=== PATIENT | female | born 1995 | race Caucasian/White ===

== ENCOUNTER → 2021-11-14 | Outpatient (CLI) | payer OTHER, BC ==
[2021-11-14 16:21] LABS: BASOPHILS % (AUTO) 0 % (0-10); EOSINOPHILS % (AUTO) 0 % (0-10); HEMATOCRIT 38 % (35-52); HEMOGLOBIN 12.6 g/dL (11.5-16.0); LYMPHOCYTES # (AUTO) 1.3 10^3/uL (1.0-4.0); LYMPHOCYTES % (AUTO) 14 % (12-44); MEAN CORPUSCULAR HEMOGLOBIN 29 pg (25-34); MEAN CORPUSCULAR HGB CONC 33 g/dL (32-36); MEAN CORPUSCULAR VOLUME 90 fL (80-99); MEAN PLATELET VOLUME 11.1 fL (9.0-12.2); MONOCYTES # (AUTO) 0.6 10^3/uL (0.0-1.0); MONOCYTES % (AUTO) 6 % (0-12); NEUTROPHILS # (AUTO) 7.4 10^3/uL (1.8-7.8); NEUTROPHILS % (AUTO) 79 % (42-75); PLATELET COUNT 183 10^3/uL (130-400); WHITE BLOOD COUNT 9.4 10^3/uL (4.3-11.0)
[2021-11-14 16:53] LABS: ALBUMIN 3.5 GM/DL (3.2-4.5); BILIRUBIN,TOTAL 0.4 MG/DL (0.1-1.0); CALCIUM 9.2 MG/DL (8.5-10.1); CREATININE SERUM 0.6 MG/DL (0.60-1.30); POTASSIUM 3.8 MMOL/L (3.6-5.0); TOTAL PROTEIN 6.4 GM/DL (6.4-8.2); URIC ACID 4.6 MG/DL (2.6-7.2)
== END ==
LOC: LAB 16:04
PROVIDERS: ATTEND Family Medicine
DX: O13.3 Gestational [pregnancy-induced] hypertension without significant proteinuria, third trimester (principal); Z3A.00 Weeks of gestation of pregnancy not specified
CPT/HCPCS: 36415; 80053; 82570; 84156; 84550; 85025

== ENCOUNTER → 2021-11-15 | Outpatient (CLI) | payer OTHER, BC ==
--- NOTE | 2021-11-15 15:44 | Diagnostic Imaging Report ---
INDICATION: Evaluate growth. TECHNIQUE: Multiple real-time grayscale images were obtained over the gravid uterus. COMPARISON: None FINDINGS: There is a single live fetus in cephalic presentation. heart rate was recorded 136 bpm. Placenta is posterior and fundal. Amniotic fluid index is 8.0 cm. Cervical length is 4.4 cm. Biophysical profile score is normal 8 out of 8. Biometrical measurements are as follows: Biparietal 9.06 cm, age 36 weeks 6 days. Head circumference 33.40 cm, age 38 weeks 2 days. Abdominal circumference 33.30 cm, age 37 weeks 2 days. Femur length 6.96 cm, age 35 weeks 5 days. Sonographic estimate age: 37 weeks 1 days. Sonographic estimated date of delivery: 12/05/2021. Estimated Weight: 3060 gm (+/- 447 gm). LMP percentile: 25%. heart rate: 136 beats per minute. number: 1 of 1. IMPRESSION: 1. Single live IUP 37 weeks 1 day gestational age. Estimated date of confinement sonographically is 12/05/2021. 2. Normal biophysical profile of 8 out of 8. Dictated by: Dictated on workstation # [id number]
== END ==
LOC: RAD 10:21
PROVIDERS: ATTEND Family Medicine
DX: O13.3 Gestational [pregnancy-induced] hypertension without significant proteinuria, third trimester (principal); Z3A.37 37 weeks gestation of pregnancy
CPT/HCPCS: 76805; 76819

== ENCOUNTER 2021-11-21 19:00 | Inpatient (IN) | payer OTHER, BC, MEDICAID ==
[~2021-11-21] VITALS: Ht 48.3 cm; Wt 86.5 kg
[2021-11-21 20:00] VITALS: BP 132/75
[2021-11-21] MEDS ORDERED: OXYTOCIN PRE-MIX DRIP 500 ML IV SCH (20:00)
[2021-11-21] MEDS ORDERED: MINERAL OIL 30 ML TOP PRN (20:00)
[2021-11-21] MEDS: LACTATED RINGERS 1,000 ML IV SCH (20:02)
[2021-11-21 20:07] LABS: BASOPHILS % (AUTO) 0 % (0-10); EOSINOPHILS % (AUTO) 0 % (0-10); HEMATOCRIT 37 % (35-52); HEMOGLOBIN 12.4 g/dL (11.5-16.0); LYMPHOCYTES # (AUTO) 1.5 10^3/uL (1.0-4.0); LYMPHOCYTES % (AUTO) 14 % (12-44); MEAN CORPUSCULAR HEMOGLOBIN 29 pg (25-34); MEAN CORPUSCULAR HGB CONC 33 g/dL (32-36); MEAN CORPUSCULAR VOLUME 88 fL (80-99); MEAN PLATELET VOLUME 12.1 fL (9.0-12.2); MONOCYTES # (AUTO) 0.8 10^3/uL (0.0-1.0); MONOCYTES % (AUTO) 7 % (0-12); NEUTROPHILS # (AUTO) 8.1 10^3/uL (1.8-7.8); NEUTROPHILS % (AUTO) 77 % (42-75); PLATELET COUNT 221 10^3/uL (130-400); WHITE BLOOD COUNT 10.5 10^3/uL (4.3-11.0)
[2021-11-21 20:21] LABS: ALBUMIN 3.7 GM/DL (3.2-4.5); POTASSIUM 3.8 MMOL/L (3.6-5.0)
[2021-11-21 20:22] LABS: CALCIUM 9.1 MG/DL (8.5-10.1)
[2021-11-21 20:23] LABS: TOTAL PROTEIN 6.6 GM/DL (6.4-8.2)
[2021-11-21 20:25] LABS: BILIRUBIN,TOTAL 0.4 MG/DL (0.1-1.0)
[2021-11-21 20:27] LABS: CREATININE SERUM 0.63 MG/DL (0.60-1.30)
[2021-11-21 20:30] LABS: URIC ACID 5.8 MG/DL (2.6-7.2)
[2021-11-21] MEDS ORDERED: D5 LR IV SOLUTION 1,000 ML IV ONE (20:37)
[2021-11-21] MEDS: D5 LR IV SOLUTION 1,000 ML IV SCH (20:42)
[2021-11-21 21:00] VITALS: BP 121/68
[2021-11-21 22:00] VITALS: BP 134/74
[2021-11-21] MEDS ORDERED: CATHETER FLUSH 10 ML SYR IV SCH (22:00)
[2021-11-21 23:00] VITALS: BP 124/76
[2021-11-22] VITALS (61 sets, daily range): BP systolic 96–172; BP diastolic 49–90
[2021-11-22] MEDS ORDERED: fentaNYL INJ 100 MCG/2 ML AMP ONE ×3 (00:47→12:41)
[2021-11-22] MEDS: fentaNYL INJ 100 MCG/2 ML AMP IVP PRN ×2 (00:51→12:08)
[2021-11-22] MEDS ORDERED: fentaNYL 2 mcg/ml BUPIVA 0.125 100 ML ONE (02:18)
[2021-11-22] MEDS ORDERED: BUPIVACAINE 0.25% 30 ML (SENSORCAINE) VIAL ONE (03:13)
[2021-11-22] MEDS ORDERED: ONDANSETRON 4 MG/2 ML (SDV) Z0FRAN ONE ×2 (03:16→12:41)
[2021-11-22] MEDS: D5 LR IV SOLUTION 1,000 ML IV SCH (03:59)
[2021-11-22] MEDS ORDERED: EPIDURAL (fentaNYL 2 MCG/ML BUPIVA 0.125%)100 ML BAG EPI PRN (04:00)
[2021-11-22] MEDS ORDERED: NALOXONE 0.4 MG/ML 1 ML (NARCAN) VIAL IV PRN (04:00)
[2021-11-22] MEDS ORDERED: ONDANSETRON 4 MG/2 ML (SDV) Z0FRAN IV PRN (04:00)
[2021-11-22] MEDS ORDERED: fentaNYL INJ 100 MCG/2 ML AMP INJ ONE (04:00)
[2021-11-22] MEDS ORDERED: LACTATED RINGERS 1,000 ML IV ONE ×2 (04:00)
--- NOTE | 2021-11-22 07:51 | History & Physical-OB ---
OB - Chief Complaint & HPI Date/Time Date of Admission: Date of Admission: Nov 21, 2021 at 19:18 Date seen by a Provider: Nov 22, 2021 Time Seen by a Provider: 07:50 Chief Complaint/History OB-Reason for Admission/Chief: Obstetrical Complication Hx : 2 Hx Para: 0 Expected Date of Delivery: Nov 25, 2021 Gestational Age in Weeks: 39 Gestational Age in Days: 3 Indication for induction: medical complication History of Labs A+, antibody neg, rubella equivalent, GBS neg. Other GHTN with mild elevations of BP around 140/92 at 3 separate visits, negative preeclampsia labs outpatient last week and on admission. Allergies and Home Medications Allergies Coded Allergies: No Known Drug Allergies (Unverified , 11/14/21) Patient Home Medication List Home Medication List Reviewed: Yes Citalopram Hydrobromide (Citalopram HBr) 10 Mg Tablet, 10 MG PO DAILY, (Report ed) Entered as Reported by: KISHA KEENAN on 11/22/21802 Last Action: Reviewed Glycopyrrolate (Glycopyrrolate) 2 Mg Tablet, 1 TAB PO TID, (Reported) Entered as Reported by: KISHA KEENAN on 11/22/21802 Last Action: Reviewed Omeprazole (Omeprazole) 40 Mg Capsule.dr, 40 MG PO DAILY, (Reported) Entered as Reported by: KISHA KEENAN on 11/22/21802 Last Action: Reviewed No.137/Iron/Folic Acd ( Vitamin Tablet) 27 Mg-0.8 Mg Tablet, 1 EACH PO, (Reported) Entered as Reported by: KISHA KEENAN on 11/22/21803 Last Action: Reviewed OB - History Hx of Present Care: Yes Ultrasounds: Normal mid trimester US Obstetrical Complications: Gestational Hypertension Information Induced Hypertension: Yes Maternal Gestational Diabetes: No Hemorrhage: No Obstetrical History Hx : 2 Hx Para: 0 Hx # Term Pregnancies: 0 Hx # Pregnancies: 0 Number of Living Children: 0 Hx Termination: No Hx Total # of Abortions (Spona: 1 Hx Multiple Gestation: No Hx Ectopic : No Hx Stillbirth: No Hx Complication: No Hx Induced Hypertens: Yes Hx Maternal Gestational Diabet: No Hx Hemorrhage: No Patient Past Medical History PMHx: Hyperhydrosis Depression Surghx: Tonsillectomy Cholecystectomy Social History/Family History Alcohol Use: Denies Use Recreational Drug Use: No Smoking Cessation: Never smoker Immunizations Influenza Vaccine Up-to-Date: No; Not Current First/Initial COVID19 Vaccine: 07/21/2020 Second COVID19 Vaccination: 08/21/2020 Tetanus Booster (TDap): Less than 5yrs (09/13/2021) RPR/VDRL: Negative GBS Status: Negative HBsAG: Negative OB - Admission Exam Physical Exam Vitals: Vital Signs 11/22/21 11/22/21 05:55 06:53 Temp 36.6 Pulse 110 Resp 18 B/P (MAP) 126/64 (84) Pulse Ox 97 O2 Delivery Room Air HEENT: NCAT Abdomen: Non tender Extremities: Normal Cervical Dilatation: 6cm Effacement: Other (80) Station: -2 Membranes: Ruptured (at time of exam) Amniotic Fluid: Clear Heart Rate: 130's Accelerations: Accelerations Present Decelerations: No Decelerations Short Term Variability: Present Cotton Ginner Helper Variability: Average (6-25) Contractions on Admission: None Farr Scoring Tool (Modified) Dilation (cm): 1-2cm (1) Effacement (%): 0-30% (0) Descent/Station: -3 (0) Cervix Consistency: Soft (2) Cervix Position: Anterior (2) Subtract 1 point for: Nulliparity (-1) Farr Score: 4 Labs Laboratory Tests Test 11/21/21 19:43 Range/Units White Blood Count 10.5 4.3-11.0 10^3/uL Red Blood Count 4.23 3.80-5.11 10^6/uL Hemoglobin 12.4 11.5-16.0 g/dL Hematocrit 37 35-52 % Mean Corpuscular Volume 88 80-99 fL Mean Corpuscular Hemoglobin 29 25-34 pg Mean Corpuscular Hemoglobin Concent 33 32-36 g/dL Red Cell Distribution Width 13.6 10.0-14.5 % Platelet Count 221 130-400 10^3/uL Mean Platelet Volume 12.1 9.0-12.2 fL Immature Granulocyte % (Auto) 1 % Neutrophils (%) (Auto) 77 H 42-75 % Lymphocytes (%) (Auto) 14 12-44 % Monocytes (%) (Auto) 7 0-12 % Eosinophils (%) (Auto) 0 0-10 % Basophils (%) (Auto) 0 0-10 % Neutrophils # (Auto) 8.1 H 1.8-7.8 10^3/uL Lymphocytes # (Auto) 1.5 1.0-4.0 10^3/uL Monocytes # (Auto) 0.8 0.0-1.0 10^3/uL Eosinophils # (Auto) 0.0 0.0-0.3 10^3/uL Basophils # (Auto) 0.0 0.0-0.1 10^3/uL Immature Granulocyte # (Auto) 0.1 0.0-0.1 10^3/uL Urine Protein 19 H 6-12 MG/DL Urine Creatinine 326 H 30-125 MG/DL Urine Protein/Creatinine Ratio 0.06 Sodium Level 137 135-145 MMOL/L Potassium Level 3.8 3.6-5.0 MMOL/L Chloride Level 107 98-107 MMOL/L Carbon Dioxide Level 17 L 21-32 MMOL/L Anion Gap 13 5-14 MMOL/L Blood Urea Nitrogen 9 7-18 MG/DL Creatinine 0.63 0.60-1.30 MG/DL Estimat Glomerular Filtration Rate 127 BUN/Creatinine Ratio 14 Glucose Level 81 70-105 MG/DL Uric Acid 5.8 2.6-7.2 MG/DL Calcium Level 9.1 8.5-10.1 MG/DL Corrected Calcium 9.3 8.5-10.1 MG/DL Total Bilirubin 0.4 0.1-1.0 MG/DL Aspartate Amino Transf (AST/SGOT) 23 5-34 U/L Alanine Aminotransferase (ALT/SGPT) 15 0-55 U/L Alkaline Phosphatase 226 H 40-136 U/L Lactate Dehydrogenase 257 H 125-220 U/L Total Protein 6.6 6.4-8.2 GM/DL Albumin 3.7 3.2-4.5 GM/DL OB - Assessment/Plan/Diagnosis Assessment Admission Dx Gestational hypertension 39 weeks gestation Induction of labor GBS negative Rubella equivocal Admission Status: Inpatient Order (span 2 midnights) Reason for Inpatient Admission: Induction, labor and delivery and course Plan Plan: Induction Induction Method: per Misoprostol Protocol Problems: (1) Gestational hypertension Assessment & Plan: Induction of labor planned with misoprostol, preeclampsia labs negative on admission. Qualifiers: Qualified Codes: O13.3 - Gestational [-induced] hypertension without significant proteinuria, third trimester KISHA KEENAN MD Nov 22, 2021 07:51
[2021-11-22] MEDS ORDERED: OMEP40CA6 PO (08:03)
[2021-11-22] MEDS ORDERED: CITA10TA9 PO (08:03)
[2021-11-22] MEDS ORDERED: GLYC2TAB3 PO (08:03)
[2021-11-22] MEDS ORDERED: PREN-164 PO (08:04)
--- NOTE | 2021-11-22 08:56 | Anesthesia-Regional Post-Op ---
Regional Patient Condition Mental Status: Alert, Oriented x3 Circulation: Same as Pre-Op Headache: Absent Sensation: Full Recovery Motor Block: Absent Post Op Complications Complications None Follow Up Care/Instructions Patient Instructions None needed. Anesthesia/Patient Condition Patient is doing well, no complaints, stable vital signs, no apparent adverse anesthesia problems. No complications reported per nursing. JONATHAN BYRD CRNA Nov 22, 2021 08:56
[2021-11-22] MEDS ORDERED: LIDOCAINE 1% INJ 20 ML VIAL ONE (10:31)
[2021-11-22] MEDS: LACTATED RINGERS 1,000 ML IV SCH ×2 (12:25→13:18)
[2021-11-22] MEDS ORDERED: MIDAZOLAM 2 MG/2 ML (VERSED) VIAL ONE (12:41)
[2021-11-22] MEDS ORDERED: LIDOCAINE PF 2% 5 ML (XYLOCAINE) VIAL ONE (12:41)
[2021-11-22] MEDS ORDERED: SUCCINYLCHOLINE INJ 100 MG/5 ML SYR/VIAL ONE (12:41)
[2021-11-22] MEDS ORDERED: ROCURONIUM 50 MG/5 ML (ZEMURON) VIAL IV ONE (12:41)
[2021-11-22] MEDS ORDERED: GLYCOPYRROLATE 0.2 MG/ML (ROBINUL) 2 ML VIAL ONE (12:41)
[2021-11-22] MEDS ORDERED: proPOfol 200 MG/20 ML (DIPRIVAN) VIAL IV ONE (12:41)
[2021-11-22] MEDS ORDERED: PIPERACILLIN/TAZO 4.5 GM VIAL (ZOSYN) IV ONE (12:50)
[2021-11-22] MEDS ORDERED: PIPERACILLIN SODIUM/TAZOBACTAM 4.5 GM in NS (IVPB) 100 ML IV NR ×2 (13:00→21:00)
[2021-11-22] MEDS ORDERED: LACTATED RINGERS 1,000 ML IV PRN (13:00)
[2021-11-22] MEDS ORDERED: CARBOPROST (HEMABATE) 250 MCG/ML AMP IM ONE (13:06)
[2021-11-22] MEDS ORDERED: METHYLERGONOVINE 0.2 MG/ML (METHERGINE) AMP ONE (13:06)
[2021-11-22] MEDS ORDERED: NS (IVPB) 100 ML ONE (13:07)
[2021-11-22] MEDS ORDERED: PHENYLEPHRINE 100 MCG/ML 10 ML (ANESTHESIA) SYR ONE (13:19)
[2021-11-22] MEDS ORDERED: OXYTOCIN PRE-MIX DRIP 500 ML IV ONE (13:23)
--- NOTE | 2021-11-22 14:06 | OB Labor & Delivery Record ---
Vag Delivery Note Vag Delivery Note Date of Delivery: 11/22/21 Preoperative Diagnosis: Simba Knight is a (25 /Para 2 / 0,Gestational Age (wks)39with 4 days Postoperative Diagnosis: Same Surgeon: KISHA KEENAN Cigarette Roller: Wendy Villegas MS2 Anesthesia: Epidural Delivery Type: Spontaneous vaginal delivery Findings: Viable male infant, apgars 7/9, weight 6#11 Lacerations: right labial, second degree perineal, cervical laceration (noted in OR after placenta) Nuchal cord x1 loose, delivered through, No body cord or shoulder dystocia Estimated Blood Loss: 150 ml Complications: None Condition: Stable Description of Procedure: The patient is a 25 year old female who presented for induction of labor for mild GHTN. She was admitted and informed consent was obtained. Her labor course was unremarkable. She progressed to complete dilatation and began to push. She was then set up for delivery. The 's head was delivered atraumatically in the YVONNE position. The shoulders and remainder of the infant's body were then delivered without difficulty. Upon delivery, the infant was placed on maternal bdomen. The cord was doubly clamped and cut and the was handed off to the pediatric staff. After 30 minutes with active management of third stage, placenta had not delivered, so epidural was restarted and an attempt at manual placental extraction which was unsuccessful. After 50 mcg of IV fentanyl was given a second attempt was made at manual extraction and I was able to separate part of the placenta, but it remained tightly adhered at maternal left. She had minimal to no bleeding throughout this time. At about 55 minutes after delivery, consulted with Flat Lock Machine Operator who took patient to OR for further placental management, please see OR notes. Vitals - Labs Vital Signs - I&O Vital Signs Date Time Temp Pulse Resp B/P (MAP) Pulse Ox O2 Delivery O2 Flow Rate FiO2 11/22/21 06:53 36.6 110 18 126/64 (84) 11/22/21 06:38 111 18 123/61 (81) 11/22/21 06:24 109 18 116/59 (78) 11/22/21 06:08 111 18 113/57 (75) 11/22/21 05:55 108 18 122/68 (86) 97 Room Air 11/22/21 05:40 115 18 114/61 (78) 95 Room Air 11/22/21 05:25 112 18 113/58 (76) 96 Room Air 11/22/21 05:09 100 18 113/55 (74) 96 Room Air 11/22/21 04:54 103 18 116/59 (78) 96 Room Air 11/22/21 04:39 105 18 99/58 (72) 98 Room Air 11/22/21 04:22 118 18 123/70 (87) 98 Room Air 11/22/21 04:03 107 18 120/65 (83) 96 Room Air 11/22/21 04:00 113 18 112/63 (79) 97 Room Air 11/22/21 03:53 104 18 125/75 (92) 96 Room Air 11/22/21 03:50 112 18 126/71 (89) 96 Room Air 11/22/21 03:46 118 18 125/82 (96) 96 Room Air 11/22/21 03:38 116 18 132/84 (100) 98 Room Air 11/22/21 03:34 113 18 136/86 (103) 98 Room Air 11/22/21 03:28 112 18 137/83 (101) 94 Room Air 11/22/21 03:09 100 18 109/58 (75) 11/22/21 02:55 96 18 133/75 (94) 11/22/21 02:40 105 18 135/74 (94) 11/22/21 02:01 103 18 128/81 (97) 11/22/21 01:01 101 18 121/77 (92) 11/22/21 00:00 100 18 135/87 (103) 11/21/21 23:00 96 18 124/76 (92) 11/21/21 22:00 98 18 134/74 (94) 96 Room Air 11/21/21 21:00 111 18 121/68 (85) 97 Room Air 11/21/21 20:00 36.7 122 18 97 Room Air I & O 11/22/21 07:00 Intake Total 2000 ml Balance 2000 ml Labs Laboratory Tests 11/21/21 19:43: White Blood Count 10.5, Red Blood Count 4.23, Hemoglobin 12.4, Hematocrit 37, Mean Corpuscular Volume 88, Mean Corpuscular Hemoglobin 29, Mean Corpuscular Hemoglobin Concent 33, Red Cell Distribution Width 13.6, Platelet Count 221, Mean Platelet Volume 12.1, Immature Granulocyte % (Auto) 1, Neutrophils (%) (Auto) 77H, Lymphocytes (%) (Auto) 14, Monocytes (%) (Auto) 7, Eosinophils (%) (Auto) 0, Basophils (%) (Auto) 0, Neutrophils # (Auto) 8.1H, Lymphocytes # (Auto) 1.5, Monocytes # (Auto) 0.8, Eosinophils # (Auto) 0.0, Basophils # (Auto) 0.0, Immature Granulocyte # (Auto) 0.1, Urine Protein 19H, Urine Creatinine 326H , Urine Protein/Creatinine Ratio 0.06, Sodium Level 137, Potassium Level 3.8, Chloride Level 107, Carbon Dioxide Level 17L, Anion Gap 13, Blood Urea Nitrogen 9, Creatinine 0.63, Estimat Glomerular Filtration Rate 127, BUN/Creatinine Ratio 14, Glucose Level 81, Uric Acid 5.8, Calcium Level 9.1, Corrected Calcium 9.3, Total Bilirubin 0.4, Aspartate Amino Transf (AST/SGOT) 23, Alanine Aminotransferase (ALT/SGPT) 15, Alkaline Phosphatase 226H, Lactate Dehydrogenase 257H, Total Protein 6.6, Albumin 3.7 KISHA KEENAN MD Nov 22, 2021 14:06
[2021-11-22] MEDS ORDERED: morphine INJ 10 MG/ML 1ML (SYR OR VIAL) IVP ONE (14:15)
[2021-11-22] MEDS ORDERED: HYDROmorphone 2 MG/ML VIAL (DILAUDID) IV ONE (14:15)
[2021-11-22] MEDS ORDERED: ONDANSETRON 4 MG/2 ML (SDV) Z0FRAN IVP PRN (14:15)
--- NOTE | 2021-11-22 14:22 | Newborn Infant H&P-Admission ---
Infant Record Exam Date & Time Date seen by provider: Nov 22, 2021 Time seen by provider: 11:[address] Hensley Delivery Assessment Expected Date of Delivery: Nov 25, 2021 Hx : 2 Hx Para: 0 Gestational Age in Weeks: 39 Gestational Age in Days: 4 Delivery Date: Nov 22, 2021 Delivery Time: 11:24 Condition of Infant: Living Delivery Method: Spontaneous Vaginal Operative Indications (Cesarea: N/A-Vaginal Delivery Anesthesia Type: Epidural Events: Induced HTN Intrapartal Events: Other Events (Prolonged 3rd stage of labor, mom to OR for placental evacuation) Gender: Male Viability: Living Mother's Group Strep Mother's Group B Strep: Negative Maternal Labs Rubella: Not Immune (equivocal ) Score Score at 1 Minute: 7 Score at 5 Minutes: 9 Condition/Feeding Benefits of discussed with mother. Feeding Method: Breast Milk-Exclusive Gestation: Single Admission Examination Level of Alertness: Alert Activity/State: Active Alert Suckling: Suckled w Encouragement Anterior [place] Descriptio: WNL Cephalohematoma: No Sclera Description: Clear Mouth, Nose, Eyes: Hard & Soft Palate Intact Neck: Head Mobile Cardiovascular: Regular Rhythm, Femoral Pulses Equal Respiratory: Regular, Unlabored Breath Sounds: Clear, Equal Caput Succedaneum: No Abdomen: Soft Genitalia: Appear Normal Back: Spine Closed, Anus Patent Hips: WNL Movement: Symmetric-Body Muscle Tone: Active Extremities: 5 digits present on each extremity Reflexes: Red, Suck, Grasp-Bilateral Weight/Height Weight: 6.11 Height (Inches): 19 Weight (Calculated Grams): 68513.000 Vital Signs Vital Signs Date Time Temp Pulse Resp B/P (MAP) Pulse Ox O2 Delivery O2 Flow Rate FiO2 11/22/21 14:10 20 103/65 (78) 99 OxyMask 6.00 11/22/21 14:00 20 110/70 (83) 100 OxyMask 6.00 11/22/21 13:56 36.2 20 111/76 (88) 100 OxyMask 6.00 11/22/21 06:53 36.6 110 18 126/64 (84) 11/22/21 06:38 111 18 123/61 (81) 11/22/21 06:24 109 18 116/59 (78) 11/22/21 06:08 111 18 113/57 (75) 11/22/21 05:55 108 18 122/68 (86) 97 Room Air 11/22/21 05:40 115 18 114/61 (78) 95 Room Air 11/22/21 05:25 112 18 113/58 (76) 96 Room Air 11/22/21 05:09 100 18 113/55 (74) 96 Room Air 11/22/21 04:54 103 18 116/59 (78) 96 Room Air 11/22/21 04:39 105 18 99/58 (72) 98 Room Air 11/22/21 04:22 118 18 123/70 (87) 98 Room Air 11/22/21 04:03 107 18 120/65 (83) 96 Room Air 11/22/21 04:00 113 18 112/63 (79) 97 Room Air 11/22/21 03:53 104 18 125/75 (92) 96 Room Air 11/22/21 03:50 112 18 126/71 (89) 96 Room Air 11/22/21 03:46 118 18 125/82 (96) 96 Room Air 11/22/21 03:38 116 18 132/84 (100) 98 Room Air 11/22/21 03:34 113 18 136/86 (103) 98 Room Air 11/22/21 03:28 112 18 137/83 (101) 94 Room Air 11/22/21 03:09 100 18 109/58 (75) 11/22/21 02:55 96 18 133/75 (94) 11/22/21 02:40 105 18 135/74 (94) 11/22/21 02:01 103 18 128/81 (97) 11/22/21 01:01 101 18 121/77 (92) 11/22/21 00:00 100 18 135/87 (103) 11/21/21 23:00 96 18 124/76 (92) 11/21/21 22:00 98 18 134/74 (94) 96 Room Air 11/21/21 21:00 111 18 121/68 (85) 97 Room Air 11/21/21 20:00 36.7 122 18 97 Room Air Laboratory Tests 11/21/21 19:43: White Blood Count 10.5, Red Blood Count 4.23, Hemoglobin 12.4, Hematocrit 37, Mean Corpuscular Volume 88, Mean Corpuscular Hemoglobin 29, Mean Corpuscular Hemoglobin Concent 33, Red Cell Distribution Width 13.6, Platelet Count 221, Mean Platelet Volume 12.1, Immature Granulocyte % (Auto) 1, Neutrophils (%) (Auto) 77H, Lymphocytes (%) (Auto) 14, Monocytes (%) (Auto) 7, Eosinophils (%) (Auto) 0, Basophils (%) (Auto) 0, Neutrophils # (Auto) 8.1H, Lymphocytes # (Auto) 1.5, Monocytes # (Auto) 0.8, Eosinophils # (Auto) 0.0, Basophils # (Auto) 0.0, Immature Granulocyte # (Auto) 0.1, Urine Protein 19H, Urine Creatinine 326H , Urine Protein/Creatinine Ratio 0.06, Sodium Level 137, Potassium Level 3.8, Chloride Level 107, Carbon Dioxide Level 17L, Anion Gap 13, Blood Urea Nitrogen 9, Creatinine 0.63, Estimat Glomerular Filtration Rate 127, BUN/Creatinine Ratio 14, Glucose Level 81, Uric Acid 5.8, Calcium Level 9.1, Corrected Calcium 9.3, Total Bilirubin 0.4, Aspartate Amino Transf (AST/SGOT) 23, Alanine Aminotransferase (ALT/SGPT) 15, Alkaline Phosphatase 226H, Lactate Dehydrogenase 257H, Total Protein 6.6, Albumin 3.7 Impression on Admission Impression on Admission: , Infant, Living, Term Progress/Plan/Problem List (1) Gestational hypertension Qualifiers: Qualified Codes: O13.3 - Gestational [-induced] hypertension without significant proteinuria, third trimester Assessment & Plan: Induction of labor planned with misoprostol, preeclampsia labs negative on admission. BATSHEVA FARIA Nov 22, 2021 14:22
[2021-11-22] MEDS ORDERED: SEVOFLURANE (ULTANE) 15 ML INHAL SOLN ONE (14:54)
[2021-11-22] MEDS ORDERED: BENZOCAINE/MENTHOL (DERMOPLAST) 56 ML CAN TP PRN (15:45)
[2021-11-22] MEDS ORDERED: WITCH HAZEL(TUCKS) 40 EA JAR TOP PRN (15:45)
[2021-11-22] MEDS ORDERED: MEASLES,MUMPS,RUBELLA 1 EA INJ SQ ONE (15:45)
[2021-11-22] MEDS: IBUPROFEN 600 MG (MOTRIN) TAB PO SCH ×2 (16:25→21:33)
[2021-11-22] MEDS: DOCUSATE SODIUM 100 MG (COLACE) CAP PO SCH (21:33)
[2021-11-22] MEDS ORDERED: CATHETER FLUSH 10 ML SYR IV SCH (22:00)
[2021-11-23 01:35] VITALS: BP 118/59
--- NOTE | 2021-11-23 02:14 | OPERATIVE REPORT ---
DATE OF SERVICE: 11/22/2021 PREOPERATIVE DIAGNOSIS: Retained placenta after spontaneous vaginal delivery by Dr. Hensley. POSTOPERATIVE DIAGNOSES: Retained placenta after spontaneous vaginal delivery by Dr. Hensley with right labial laceration, right cervical laceration and a second-degree perineal laceration. OPERATIVE PROCEDURE: Manual extraction and D and C for retained placenta as well as repair of cervical laceration, repair of right labial laceration, repair of perineal laceration. OPERATIVE DESCRIPTION: With the patient in the supine position under epidural analgesia, that was not satisfactory for manual exploration of the uterus. The patient was subjected to general anesthesia. Dr. Hensley had tried at least twice to remove manually the placenta that had been insight to over an hour at this point without spontaneously releasing without being able to manually extract it. I was called for evaluation and management. With the patient under general anesthesia now the large quantity of clots was evacuated from the vagina and the cervix, probably where in the range of 1000 mL. The patient was prepped and draped in the usual fashion and then manual exploration of the uterus revealed a placenta that was approximately 50 to 60% detached, but was densely adherent to the anterior uterine wall. This was eventually stripped free manually. The placenta was examined. It appeared to be almost completely intact. Uterine cavity was now sharply curettaged with a Walker's curette removal of another fairly significant aliquot of blood, clot, debris, residual tissue and placental tissue. For that portion of the procedure, weighted speculum was in the posterior fornix of vagina and a ring clamp was placed on the anterior lip of the cervix. With the D and C performed and the patient was given a dose of Methergine to tighten the uterus as no Pitocin was immediately available eventually Pitocin was available and was run at 125 mL per hour. But the uterus contracted nicely. At this point, we probably lost about another 500 mL of blood in extracting the placenta and a D and C given a total blood loss at this point of about 1500 mL. The cervical laceration was repaired with a running lock stitch of 3-0 Vicryl Rapide using the weighted speculum and a Greene retractor for exposure. Good hemostasis was achieved there. The right labial laceration was repaired with a running lock suture of 3-0 Vicryl as well and then the second-degree perineal laceration with a partial capsulotomy was repaired with an additional suture of 3-0 Vicryl Rapide in the usual manner with good reapproximation and good hemostasis and good support achieved. Sponge and needle counts were correct at this point in the procedure. Total blood loss was slightly in excess of 1500 mL and this would be in addition to whatever was lost while Dr. Hensley had been dealing with the patient. But she described that as less than 300-400 mL. The patient tolerated the procedure well and was now uneventfully awakened from her general anesthesia and transferred to the recovery room with plans to return to the OB floor after recovery. Job ID: [id number] DocumentID: [id number] Dictated Date: 11/22/2021 15:10:38 Tent Finisher Date: 11/23/2021 02:12:59 Dictated By: AMADA BURGESS MD
[2021-11-23 04:47] VITALS: BP 100/57
[2021-11-23] MEDS: IBUPROFEN 600 MG (MOTRIN) TAB PO SCH ×2 (04:47→09:54)
[2021-11-23 05:56] LABS: BASOPHILS % (AUTO) 0 % (0-10); EOSINOPHILS % (AUTO) 0 % (0-10); HEMATOCRIT 24 % (35-52); LYMPHOCYTES # (AUTO) 1.8 10^3/uL (1.0-4.0); LYMPHOCYTES % (AUTO) 11 % (12-44); MEAN CORPUSCULAR HEMOGLOBIN 30 pg (25-34); MEAN CORPUSCULAR HGB CONC 33 g/dL (32-36); MEAN CORPUSCULAR VOLUME 91 fL (80-99); MEAN PLATELET VOLUME 11.8 fL (9.0-12.2); MONOCYTES # (AUTO) 1.3 10^3/uL (0.0-1.0); MONOCYTES % (AUTO) 8 % (0-12); NEUTROPHILS % (AUTO) 80 % (42-75); PLATELET COUNT 167 10^3/uL (130-400); WHITE BLOOD COUNT 16.2 10^3/uL (4.3-11.0)
[2021-11-23] MEDS ORDERED: PRENATAL VITAMIN 1 EA TAB PO SCH (07:00)
--- NOTE | 2021-11-23 09:10 | Progress Note ---
Standard Progress Note Progress Notes/Assess & Plan Date Seen by a Provider: Nov 23, 2021 Time Seen by a Provider: 09:06 Progress/Assessment & Plan This patient is without complaint. She has had normal lochia flow since the surgical procedure last evening. She did undergo manual exploration of the uterine cavity with removal of a retained placenta as well as D&C. In addition cervical laceration was repaired as well as a right labial laceration and a second-degree perineal laceration patient reports good pain control. She is breast-feeding and has no specific Vital Signs Date Time Temp Pulse Resp B/P (MAP) Pulse Ox O2 Delivery O2 Flow Rate FiO2 11/23/21 04:47 36.0 99 18 100/57 (71) 96 Room Air 11/23/21 01:35 36.1 102 18 118/59 (78) 96 Room Air 11/22/21 21:33 36.0 110 18 116/66 (83) 96 Room Air 11/22/21 18:16 35.1 102 18 113/58 (76) 96 Room Air 11/22/21 15:01 36.1 100 18 118/71 (87) 95 Room Air 11/22/21 14:55 36.2 20 117/82 (94) 97 Room Air 11/22/21 14:55 Room Air 11/22/21 14:51 20 117/80 (92) 97 Room Air 11/22/21 14:45 Room Air 11/22/21 14:40 20 105/74 (84) 96 OxyMask 11/22/21 14:30 20 113/73 (86) 97 OxyMask 3.00 11/22/21 14:30 OxyMask 3.00 11/22/21 14:20 20 111/74 (86) 98 OxyMask 2.00 11/22/21 14:15 OxyMask 6.00 11/22/21 14:10 20 103/65 (78) 99 OxyMask 6.00 11/22/21 14:00 20 110/70 (83) 100 OxyMask 6.00 11/22/21 14:00 OxyMask 6.00 11/22/21 13:56 OxyMask 6.00 11/22/21 13:56 36.2 20 111/76 (88) 100 OxyMask 6.00 11/22/21 12:53 115 18 122/57 (78) Room Air 11/22/21 12:48 37.2 11/22/21 12:40 114 18 132/61 (84) Room Air 11/22/21 12:23 112 18 136/64 (88) Room Air 11/22/21 12:08 37.0 112 18 132/61 (84) Room Air 11/22/21 11:56 37.0 11/22/21 11:53 120 18 96/49 (65) Room Air 11/22/21 11:38 37.0 117 18 115/58 (77) Room Air 11/22/21 11:24 141 18 122/67 (85) Room Air 11/22/21 11:10 121 18 148/65 (92) Room Air 11/22/21 10:55 109 18 139/76 (97) Room Air 11/22/21 10:39 104 18 142/81 (101) Room Air 11/22/21 10:34 37.1 11/22/21 10:23 106 18 143/76 (98) Room Air 11/22/21 10:12 114 18 172/81 (111) Room Air 11/22/21 10:10 116 18 172/90 (117) Room Air 11/22/21 09:55 114 18 143/88 (106) Room Air 11/22/21 09:39 108 18 140/82 (101) Room Air 11/22/21 09:25 101 18 133/79 (97) Room Air 11/22/21 09:10 111 18 129/62 (84) Room Air I & O 11/23/21 06:59 Intake Total 2700 ml Output Total 2200 ml Balance 500 ml I will signs are stable. Patient is afebrile. Patient is slightly tachycardic Laboratory Tests Test 11/23/21 05:45 Range/Units White Blood Count 16.2 H 4.3-11.0 10^3/uL Red Blood Count 2.68 L 3.80-5.11 10^6/uL Hemoglobin 8.0 #L 11.5-16.0 g/dL Hematocrit 24 L 35-52 % Mean Corpuscular Volume 91 80-99 fL Mean Corpuscular Hemoglobin 30 25-34 pg Mean Corpuscular Hemoglobin Concent 33 32-36 g/dL Red Cell Distribution Width 14.0 10.0-14.5 % Platelet Count 167 130-400 10^3/uL Mean Platelet Volume 11.8 9.0-12.2 fL Immature Granulocyte % (Auto) 1 % Neutrophils (%) (Auto) 80 H 42-75 % Lymphocytes (%) (Auto) 11 L 12-44 % Monocytes (%) (Auto) 8 0-12 % Eosinophils (%) (Auto) 0 0-10 % Basophils (%) (Auto) 0 0-10 % Neutrophils # (Auto) 13.0 H 1.8-7.8 10^3/uL Lymphocytes # (Auto) 1.8 1.0-4.0 10^3/uL Monocytes # (Auto) 1.3 H 0.0-1.0 10^3/uL Eosinophils # (Auto) 0.0 0.0-0.3 10^3/uL Basophils # (Auto) 0.0 0.0-0.1 10^3/uL Immature Granulocyte # (Auto) 0.1 0.0-0.1 10^3/uL Hemoglobin is 8 and white blood cell count is 16,000 The abdomen is benign. Fundus is firm below the umbilicus and nontender. Extremities show no clubbing cyanosis. There is no Homans' sign. Pelvic exam was deferred Assessment and plan day 1 status post term spontaneous vaginal delivery with retained placenta as well as cervical labial and perineal lacerations. Patient's hemoglobin is not surprising at 8. Decision for management of this anemia will be left with Dr. Hensley. Patient is stable and has no specific complaints. I am available if I can be of any further assistance AMADA BURGESS MD Nov 23, 2021 09:10
[2021-11-23 09:54] VITALS: BP 111/57
[2021-11-23] MEDS: DOCUSATE SODIUM 100 MG (COLACE) CAP PO SCH (09:54)
[2021-11-23] MEDS ORDERED: MEASLES,MUMPS,RUBELLA 1 EA INJ ONE (10:05)
--- NOTE | 2021-11-23 10:49 | Anesthesia-General Post-Op ---
General Patient Condition Mental Status/LOC: Same as Preop Cardiovascular: Satisfactory Nausea/Vomiting: Absent Respiratory: Satisfactory Pain: Controlled Complications: Absent Post Op Complications Complications None Follow Up Care/Instructions Patient Instructions None needed. Anesthesia/Patient Condition Patient Condition Patient is doing well, no complaints, stable vital signs, no apparent adverse anesthesia problems. No complications reported per nursing. ROGER MEDELLIN CRNA Nov 23, 2021 10:49
[2021-11-23 12:05] VITALS: BP 124/62
--- NOTE | 2021-11-23 15:31 | Discharge Summary ---
Diagnosis/Chief Complaint Date of Admission Nov 21, 2021 at 19:18 Date of Discharge November 23, 2021 Admission Diagnosis Admission Diagnosis 1. IUP at term Discharge Diagnosis 1. IUP at term Discharge Summary-OBS Procedures None. Discharge Physical Examination Allergies: Coded Allergies: No Known Drug Allergies (Unverified , 11/14/21) Vitals & I&Os Intake and Output 11/23/21 00:00 Intake Total 1500 ml Output Total 900 ml Balance 600 ml Vital Sign - Last 12Hours Date Time Temp Pulse Resp B/P (MAP) Pulse Ox O2 Delivery O2 Flow Rate FiO2 11/23/21 09:54 36.2 100 18 111/57 (75) 97 Room Air 11/22/21 14:30 3.00 Hospital Course Labs Laboratory Tests 11/23/21 05:45: White Blood Count 16.2H, Red Blood Count 2.68L, Hemoglobin 8.0#L, Hematocrit 24L , Mean Corpuscular Volume 91, Mean Corpuscular Hemoglobin 30, Mean Corpuscular Hemoglobin Concent 33, Red Cell Distribution Width 14.0, Platelet Count 167, M elmer Platelet Volume 11.8, Immature Granulocyte % (Auto) 1, Neutrophils (%) (Auto) 80H, Lymphocytes (%) (Auto) 11L, Monocytes (%) (Auto) 8, Eosinophils (%) (Auto) 0, Basophils (%) (Auto) 0, Neutrophils # (Auto) 13.0H, Lymphocytes # (Auto) 1.8, Monocytes # (Auto) 1.3H, Eosinophils # (Auto) 0.0, Basophils # (Auto) 0.0, Immature Granulocyte # (Auto) 0.1 Discharge Instructions to patient/family Please see electronic discharge instructions given to patient. Discharge Medications Reviewed and agree with Discharge Medication list on patient's Discharge Instruction sheet IDANIA VALENZUELA MD Nov 23, 2021 15:31
--- NOTE | 2021-11-23 15:34 | Discharge Inst-Women's Service ---
Discharge Inst-Women's Serv Depart Medication/Instructions New, Converted or Re-Newed RX: Other Instructions ibuprofen [id number] take 2 tablets every 6 hours if needed for pain or cramping Consults/Follow Up Additional Follow Up: Yes (Dr Orozco in 6 weeks.) Activity Driving Instructions: No Driving for 1 Week Nothing Inside Vagina: No [place] (for 6 weeks.) Diet Discharge Diet: Regular Diet Return to The Hospital For: as below Symptoms to Report to : Bleeding Excessive, Pain Increased, Fever Over 101 Degrees F, Vaginal Discharge Foul For Any Problems or Questions: Contact Your Physician IDANIA VALENZUELA MD Nov 23, 2021 15:34
== END 2021-11-23 15:35 | disposition home or self-care (01) | DRG 768 ==
LOC: LDRP 19:18
PROVIDERS: ADMIT Family Medicine; ATTEND Family Medicine
PROC: 0UQC0ZZ Repair Cervix, Open Approach (ICD-10-PCS; 2021-11-22)
PROC: 10D17Z9 Manual Extraction of Products of Conception, Retained, Via Natural or Artificial Opening (ICD-10-PCS; 2021-11-22)
PROC: 0KQM0ZZ Repair Perineum Muscle, Open Approach (ICD-10-PCS; 2021-11-22)
PROC: 10D17ZZ Extraction of Products of Conception, Retained, Via Natural or Artificial Opening (ICD-10-PCS; 2021-11-22)
PROC: 3E033VJ Introduction of Other Hormone into Peripheral Vein, Percutaneous Approach (ICD-10-PCS; 2021-11-22)
PROC: 10E0XZZ Delivery of Products of Conception, External Approach (ICD-10-PCS; principal; 2021-11-22 12:59)
DX: O13.4 Gestational [pregnancy-induced] hypertension without significant proteinuria, complicating childbirth (principal); Z37.0 Single live birth; O72.0 Third-stage hemorrhage; O70.1 Second degree perineal laceration during delivery; O71.3 Obstetric laceration of cervix; O69.81X0 Labor and delivery complicated by cord around neck, without compression, not applicable or unspecified; Z3A.39 39 weeks gestation of pregnancy; Z23 Encounter for immunization
CPT/HCPCS: 36415; 80053; 82570; 83615; 84156; 84550; 85025; 85027; 86850; 86900; 86901; 90707